=== PATIENT | male | born 1995 | race Caucasian/White ===

== ENCOUNTER 2017-06-28 09:15 | Observation (INO) | payer MEDICAID ==
[2017-06-28 09:19] VITALS: BMI 19.8
[2017-06-28] MEDS ORDERED: Lactated Ringer's 1,000 ML IV STA (10:04)
--- NOTE | 2017-06-28 10:10 | C.PDOC ---
History Of Present Illness Patient c/o subjective fever, epigastric pain, nausea, vomiting and diarrhea since last night. Patient reports several family members have similar symptoms, denies recent travelling or any other complaints at this time. Time Seen by Provider: 06/28/17 09:26 Chief Complaint (Nursing): Abdominal Pain History Per: Patient History/Exam Limitations: no limitations Onset/Duration Of Symptoms: Days Current Symptoms Are (Timing): Still Present Location Of Pain/Discomfort: Epigastric Past Medical History Reviewed: Historical Data, Nursing Documentation, Vital Signs Vital Signs: Last Vital Signs Temp 99.1 F 06/28/17 13:18 Pulse 116 H 06/28/17 13:18 Resp 16 06/28/17 13:18 BP 113/63 06/28/17 13:18 Pulse Ox 96 06/28/17 14:33 - Medical History PMH: No Chronic Diseases Surgical History: No Surg Hx Family History: States: No Known Family Hx - Social History Hx Alcohol Use: No Hx Substance Use: No - Immunization History Hx Tetanus Toxoid Vaccination: No Hx Influenza Vaccination: No Hx Pneumococcal Vaccination: No Review Of Systems Constitutional: Positive for: Fever Gastrointestinal: Positive for: Nausea, Vomiting, Abdominal Pain, Diarrhea Musculoskeletal: Negative for: Back Pain Skin: Negative for: Rash Physical Exam - Physical Exam Appears: Non-toxic, No Acute Distress Skin: Normal Color, Warm, Dry, No Rash Head: Atraumatic, Normacephalic Oral Mucosa: Moist Neck: Normal ROM, Supple Cardiovascular: Rhythm Regular, Other (Tachycardic) Respiratory: Normal Breath Sounds, No Rales, No Rhonchi, No Wheezing Gastrointestinal/Abdominal: Soft, Tenderness (Mild epigastric), No Guarding, No Rebound Back: No CVA Tenderness Neurological/Psych: Oriented x3 ED Course And Treatment - Laboratory Results Result Diagrams: 06/28/17 13:12 06/28/17 10:18 ECG: Interpreted By Me, Viewed By Me ECG Rhythm: Sinus Tachycardia Rate From EC (BPM ) O2 Sat by Pulse Oximetry: 96 (RA) Pulse Ox Interpretation: Normal Progress Note: Plan: labs, IV hydration. Labs were significant for leucocytosis with bendemia, patient still tachycardic after 1L of IVF. He was re -evaluated after the second liter of IVF, still tachycardic, bandemia increased. case was d/w who accepted patient to [facility] for observation. Disposition - Disposition Disposition: HOSPITALIZED Disposition Time: 13:59 Condition: FAIR - Clinical Impression Clinical Impression: Gastroenteritis, Tachycardia, Bandemia - PA / [employer] / Resident Statement MD/DO has reviewed & agrees with the documentation as recorded. - Scribe Statement The provider has reviewed the documentation as recorded by the Scribe Trinidad Sellers All medical record entries made by the Anniaibe were at my direction and personally dictated by me. I have reviewed the chart and agree that the record accurately reflects my personal performance of the history, physical exam, medical decision making, and the department course for this patient. I have also personally directed, reviewed, and agree with the discharge instructions and disposition. Decision To Admit - Pt Status Changed To: Hospital Disposition Of: Observation - . Bed Request Type: Regular Admitting Physician: Bertrand Almodovar Patient Diagnosis: Gastroenteritis, Tachycardia, Bandemia
[2017-06-28] MEDS ORDERED: Lactated Ringer's 1,000 ML ONE (10:18)
[2017-06-28 10:21] LABS: BASO % 0.1 % (0.0-2.0); EOS % 0.1 % (0.0-4.0); HEMOGLOBIN 16.8 g/dL (12.0-18.0); LYMPH # 0.3 K/uL (1.0-4.3); LYMPH % 2.7 % (20.0-40.0); MEAN CELL VOLUME 85.1 fL (80.0-94.0); MEAN CORPUSCULAR HEMOGLOBIN 29.4 pg (27.0-31.0); MEAN CORPUSCULAR HGB CONC 34.6 g/dL (33.0-37.0); MEAN PLATELET VOLUME 9.6 fL (7.2-11.7); MONO # 0.4 K/uL (0.0-0.8); MONO % 3.7 % (0.0-10.0); NEUT # 10.5 K/uL (1.8-7.0); NEUT % 93.4 % (50.0-75.0); PLATELET COUNT 185 K/uL (130-400); RBC 5.71 Mil/uL (4.40-5.90); RED CELL DISTRIBUTION WIDTH 13.2 % (11.5-14.5); WHITE BLOOD COUNT 11.2 K/uL (4.8-10.8)
[2017-06-28 10:43] LABS: ALBUMIN 4.8 g/dL (3.5-5.0); ALT/SGPT 31 U/L (21-72); AST/SGOT 27 U/L (17-59); BLOOD UREA NITROGEN 20 mg/dL (9-20); CALCIUM 9.2 mg/dl (8.6-10.4); GFR AFRICAN-AMERICAN > 60; GFR NON-AFRICAN AMERICAN > 60; LIPASE 49 U/L (23-300)
[2017-06-28 10:50] LABS: ALB/GLOB RATIO 1.2 (1.0-2.1)
[2017-06-28 10:53] LABS: URINE BILIRUBIN NEGATIVE (NEGATIVE); URINE BLOOD NEGATIVE (NEGATIVE); URINE CLARITY Clear (Clear); URINE COLOR Yellow (YELLOW); URINE GLUCOSE (UA) NORMAL (Normal); URINE LEUKOCYTE ESTERASE NEG Leu/uL (Negative); URINE NITRATE NEGATIVE (NEGATIVE); URINE PROTEIN NEGATIVE (NEGATIVE); URINE UROBILINOGEN NORMAL mg/dL (0.2-1.0)
[2017-06-28 11:18] LABS: BANDS 10 % (0-2); LYMPHOCYTE 7 % (20-40); MONOCYTE 1 % (0-10); NEUTROPHIL 82 % (50-75); TOTAL CELLS COUNTED 100
[2017-06-28 11:19] LABS: PLATELET ESTIMATE NORMAL (NORMAL)
[2017-06-28] MEDS ORDERED: Sodium Chloride 0.9% 1,000 ML IV STA (11:19)
[2017-06-28 13:16] LABS: BASO % 0.2 % (0.0-2.0); LYMPH # 0.4 K/uL (1.0-4.3); LYMPH % 4.9 % (20.0-40.0); MEAN CELL VOLUME 85.2 fL (80.0-94.0); MEAN CORPUSCULAR HEMOGLOBIN 29.3 pg (27.0-31.0); MEAN CORPUSCULAR HGB CONC 34.4 g/dL (33.0-37.0); MEAN PLATELET VOLUME 9.1 fL (7.2-11.7); MONO # 0.3 K/uL (0.0-0.8); NEUT # 8.4 K/uL (1.8-7.0); NEUT % 91.9 % (50.0-75.0); PLATELET COUNT 154 K/uL (130-400); RBC 4.81 Mil/uL (4.40-5.90); WHITE BLOOD COUNT 9.1 K/uL (4.8-10.8)
[2017-06-28 13:23] LABS: HEMOGLOBIN 14.1 g/dL (12.0-18.0)
[2017-06-28 13:53] LABS: BANDS 29 % (0-2); LYMPHOCYTE 3 % (20-40); MONOCYTE 1 % (0-10); NEUTROPHIL 67 % (50-75); PLATELET ESTIMATE NORMAL (NORMAL); TOTAL CELLS COUNTED 100
[2017-06-28] MEDS: Sodium Chloride 0.9% 1,000 ML IV SCH ×2 (17:03→23:57)
--- NOTE | 2017-06-28 23:52 | CP.PCM.HP ---
History of Present Illness - History of Present Illness History of Present Illness: Chief Complaint : Abdominal Pain associated with nuasea, vomitting, diarrhea persistant History Of Present Illness Patient is a young [place] male with no significant PMH c/o subjective fever , epigastric pain, nausea, vomiting and diarrhea since last night. Patient reports several family members have similar symptoms, denies recent travelling or any other complaints at this time. Present on Admission - Present on Admission Any Indicators Present on Admission: Yes Review of Systems - Review of Systems Systems not reviewed;Unavailable: Acuity of Condition - Constitutional Constitutional: Fatigue, Lethargy, Malaise, Weakness - Cardiovascular Cardiovascular: absent: As Per HPI, Acrocyanosis, Chest Pain, Chest Pain at Rest , Chest Pain with Activity, Claudication, Diaphoresis, Dyspnea, Dyspnea on Exertion, Edema, Irregular Heart Rhythm, Pain Radiating to Arm/Neck/Jaw, Leg Edema, Leg Ulcers, Lightheadedness, Orthopnea, Palpitations, Paroxysmal Nocturnal Dyspnea, Pedal Edema, Radiating Pain, Rapid Heart Rate, Slow Heart Rate, Syncope, Other - Respiratory Respiratory: absent: As Per HPI, Cough, Dyspnea, Hemoptysis, Dyspnea on Exertion , Wheezing, Snoring, Stridor, Pain on Inspiration, Chest Congestion, Excessive Mucous Production, Change in Mucous Color, Pain with Coughing, Other - Gastrointestinal Gastrointestinal: Abdominal Pain, Loose Stools, Nausea, Vomiting - Genitourinary Genitourinary: absent: As Per HPI, Change in Urinary Stream, Difficulty Urinating, Dysuria, Flank Pain, Hematuria, Pyuria, Nocturia, Urinary Incontinence, Urinary Frequency, Urinary Hesitance, Urinary Urgency, Voiding Freq/Small Amts, Freq UTI, Hx Renal/Bladder Calculi, Hx /Renal Surgery, Bladder Distension, Other - Musculoskeletal Musculoskeletal: absent: As Per HPI, Abnormal Gait, Arthralgias, Atrophy, Back Pain, Deformity, Joint Swelling, Limited Range of Motion, Loss of Height, Muscle Cramps, Muscle Weakness, Myalgias, Neck Pain, Numbness, Radiating Pain into Limb, Stiffness, Tingling, Other Past Patient History - Past Social History Smoking Status: Never Smoked - PSYCHIATRIC Hx Substance Use: No - SURGICAL HISTORY Hx Surgeries: No - ANESTHESIA Hx Anesthesia: No Meds Allergies/Adverse Reactions: Allergies Allergy/AdvReac Type Severity Reaction Status Date / Time No Known Allergies Allergy Verified 06/28/17 09:17 Physical Exam - Constitutional Appears: No Acute Distress - Head Exam Head Exam: ATRAUMATIC, NORMAL INSPECTION, NORMOCEPHALIC - Eye Exam Eye Exam: EOMI, Normal appearance, PERRL Pupil Exam: NORMAL ACCOMODATION, PERRL - Neck Exam Neck exam: Positive for: Normal Inspection - Respiratory Exam Respiratory Exam: Clear to Auscultation Bilateral, NORMAL BREATHING PATTERN - Cardiovascular Exam Cardiovascular Exam: REGULAR RHYTHM - GI/Abdominal Exam GI & Abdominal Exam: Normal Bowel Sounds, Soft - Rectal Exam Rectal Exam: Deferred Results - Vital Signs Recent Vital Signs: Last Vital Signs Temp 99.5 F 06/28/17 23:23 Pulse 104 H 06/28/17 23:23 Resp 19 06/28/17 23:23 BP 100/60 06/28/17 23:23 Pulse Ox 96 06/28/17 23:23 - Labs Result Diagrams: 06/28/17 13:12 06/28/17 10:18 Labs: Laboratory Results - last 24 hr 06/28/17 06/28/17 06/28/17 10:18 10:18 10:42 WBC 11.2 H RBC 5.71 Hgb 16.8 Hct 48.6 MCV 85.1 MCH 29.4 MCHC 34.6 RDW 13.2 Plt Count 185 MPV 9.6 Neut % (Auto) 93.4 H Lymph % (Auto) 2.7 L [place] % (Auto) 3.7 Eos % (Auto) 0.1 Baso % (Auto) 0.1 Neut # 10.5 H Lymph # 0.3 L [place] # 0.4 Eos # 0.0 Baso # 0.0 Neutrophils % (Manual) 82 H Band Neutrophils % 10 H Lymphocytes % (Manual) 7 L Monocytes % (Manual) 1 Platelet Estimate Normal RBC Morphology Normal Sodium 138 Potassium 3.7 Chloride 98 Carbon Dioxide 26 Anion Gap 18 BUN 20 Creatinine 0.9 Est GFR ( Amer) > 60 Est GFR (Non-Af Amer) > 60 Random Glucose 152 H Calcium 9.2 Total Bilirubin 1.6 H AST 27 ALT 31 Alkaline Phosphatase 91 Total Protein 8.8 H Albumin 4.8 Globulin 4.0 H Albumin/Globulin Ratio 1.2 Lipase 49 Urine Color Yellow Urine Clarity Clear Urine pH 7.0 Ur Specific [place] 1.025 Urine Protein Negative Urine Glucose (UA) Normal Urine Ketones 1+ H Urine Blood Negative Urine Nitrate Negative Urine Bilirubin Negative Urine Urobilinogen Normal Ur Leukocyte Esterase Neg Urine WBC (Auto) 1 Urine RBC (Auto) 1 06/28/17 13:12 WBC 9.1 RBC 4.81 Hgb 14.1 D Hct 41.0 MCV 85.2 MCH 29.3 MCHC 34.4 RDW 13.0 Plt Count 154 MPV 9.1 Neut % (Auto) 91.9 H Lymph % (Auto) 4.9 L [place] % (Auto) 3.0 Eos % (Auto) 0.0 Baso % (Auto) 0.2 Neut # 8.4 H Lymph # 0.4 L [place] # 0.3 Eos # 0.0 Baso # 0.0 Neutrophils % (Manual) 67 Band Neutrophils % 29 H* Lymphocytes % (Manual) 3 L Monocytes % (Manual) 1 Platelet Estimate Normal RBC Morphology Normal Sodium Potassium Chloride Carbon Dioxide Anion Gap BUN Creatinine Est GFR ( Amer) Est GFR (Non-Af Amer) Random Glucose Calcium Total Bilirubin AST ALT Alkaline Phosphatase Total Protein Albumin Globulin Albumin/Globulin Ratio Lipase Urine Color Urine Clarity Urine pH Ur Specific [place] Urine Protein Urine Glucose (UA) Urine Ketones Urine Blood Urine Nitrate Urine Bilirubin Urine Urobilinogen Ur Leukocyte Esterase Urine WBC (Auto) Urine RBC (Auto) Assessment & Plan (1) Gastroenteritis Status: Acute
[2017-06-29] MEDS: Sodium Chloride 0.9% 1,000 ML IV SCH ×3 (07:30→20:20)
[2017-06-29 07:45] LABS: HEMOGLOBIN 13.5 g/dL (12.0-18.0); MEAN CELL VOLUME 85.4 fL (80.0-94.0); MEAN CORPUSCULAR HEMOGLOBIN 29.2 pg (27.0-31.0); MEAN CORPUSCULAR HGB CONC 34.2 g/dL (33.0-37.0); MEAN PLATELET VOLUME 9.2 fL (7.2-11.7); RBC 4.6 Mil/uL (4.40-5.90); RED CELL DISTRIBUTION WIDTH 13.3 % (11.5-14.5); WHITE BLOOD COUNT 6.6 K/uL (4.8-10.8)
[2017-06-29 08:30] LABS: ALB/GLOB RATIO 1.2 (1.0-2.1); ALBUMIN 3.1 g/dL (3.5-5.0); ALT/SGPT 28 U/L (21-72); AST/SGOT 27 U/L (17-59); BLOOD UREA NITROGEN 11 mg/dL (9-20); CALCIUM 7.4 mg/dl (8.6-10.4); GFR AFRICAN-AMERICAN > 60; GFR NON-AFRICAN AMERICAN > 60
[2017-06-29] MEDS ORDERED: Potassium Chloride 20 mEq ER Tab PO ONE (08:54)
--- NOTE | 2017-06-29 12:00 | CP.PCM.PN ---
Subjective - Date & Time of Evaluation Date of Evaluation: 06/29/17 Time of Evaluation: 12:00 - Subjective Subjective: PT SEEN AND EXAMINED. STILL C/O NAUSEA. NO VOMITING AT THIS TIME NOR ABD PAIN. DISCUSSED WITH DR. BEGUM. CONSULT WITH DR. STUART (NOTIFIED BY ME AND HE WILL SEE PT TOMORROW). IV ABX ORDERED. REPEAT LABS ORDERED. STOOL AND CULTURES. CT ABD/PEL ORDERED. DIET ADVANCED TO FULL LIQUID FOR NOW. WILL F/U TOMORROW WITH ALL RESULTS. DISCUSSED WITH PT AND FATHER AND IN AGREEMENT WITH PLAN. NO FURTHER ORDERS. Objective - Vital Signs/Intake and Output Vital Signs (last 24 hours): Temp Pulse Resp BP Pulse Ox 97.8 F 90 20 91/84 L 97 06/29/17 08:13 06/29/17 08:13 06/29/17 08:13 06/29/17 08:13 06/29/17 08:13 Intake and Output: 06/29/17 06/29/17 06:59 18:59 Intake Total 2500 Balance 2500 - Medications Medications: Current Medications Acetaminophen (Tylenol 325mg Tab) 650 mg PO Q6 PRN PRN Reason: Pain, Mild (1-3) Last Admin: 06/29/17 00:00 Dose: 650 mg Famotidine (Pepcid) 20 mg IVP Q12 [facility] Last Admin: 06/29/17 09:43 Dose: 20 mg Sodium Chloride (Sodium Chloride 0.9%) 1,000 mls @ 150 mls/hr IV .Q6H40M [facility]ANCY Last Admin: 06/29/17 07:30 Dose: 150 mls/hr Ciprofloxacin (Cipro 400mg/200ml Dsw) 400 mg in 200 mls @ 133 mls/hr IVPB Q12H [facility] Metronidazole (Flagyl) 500 mg in 100 mls @ 100 mls/hr IVPB Q8 [facility] Ondansetron HCl (Zofran Inj) 4 mg IVP Q4 PRN PRN Reason: Nausea/Vomiting Pantoprazole Sodium (Protonix Inj) 40 mg IVP DAILY [facility] Pneumococcal Polyvalent Vaccine (Pneumovax 23 Vaccine) 0.5 ml IM .ONCE ONE Stop: 07/01/17 10:01 - Labs Labs: 06/29/17 07:39 06/29/17 07:39
[2017-06-29] MEDS: Ciprofloxacin 400mg/200ml D5W 400 MG/200 ML BAG IVPB SCH ×2 (12:46→23:53)
[2017-06-29] MEDS ORDERED: Iohexol 240 (50 ml) PO ONE (13:30)
[2017-06-29] MEDS: metroNIDAZOLE IV 500 mg/100 ml 500 MG/100 ML BAG IVPB SCH ×2 (14:07→21:29)
[2017-06-29 14:10] LABS: BASO % 0.3 % (0.0-2.0); EOS % 0.7 % (0.0-4.0); LYMPH # 1.7 K/uL (1.0-4.3); LYMPH % 25.6 % (20.0-40.0); MONO # 0.6 K/uL (0.0-0.8); MONO % 8.8 % (0.0-10.0); NEUT # 4.2 K/uL (1.8-7.0); NEUT % 64.6 % (50.0-75.0); NRBC % 0.2 % (0.0-2.0)
--- NOTE | 2017-06-29 14:49 | CARD ---
APPROVED REPORT EKG Measurement Heart [id number] <Conclusion> Sinus tachycardia Baseline Artifact.
--- NOTE | 2017-06-29 17:28 | CT ---
PROCEDURE: CT Abdomen and Pelvis without IV contrast. HISTORY: gen abd pain, n/v, bandemia COMPARISON: None available. TECHNIQUE: Contiguous axial images of the abdomen and pelvis. Oral contrast was administered. No IV contrast given. Coronal and Sagittal reformats generated and reviewed. Radiation dose: Total exam DLP = 267.96 mGy-cm. This CT exam was performed using one or more of the following dose reduction techniques: Automated exposure control, adjustment of the mA and/or kV according to patient size, and/or use of iterative reconstruction technique. FINDINGS: There is limited evaluation of the solid organs without the administration of IV contrast. Examination limited by paucity of intra-abdominal and intrapelvic fat. LOWER THORAX: No visible consolidation, pleural effusion, or pneumothorax. LIVER: Unremarkable unenhanced appearance. GALLBLADDER AND BILE DUCTS: Unremarkable unenhanced appearance. PANCREAS: Unremarkable unenhanced appearance. SPLEEN: Unremarkable unenhanced appearance. ADRENALS: Unremarkable unenhanced appearance. KIDNEYS AND URETERS: No hydronephrosis or obstructing renal calculus. BLADDER: The urinary bladder appears unremarkable. REPRODUCTIVE: Unremarkable. APPENDIX: The appendix is not identified. No secondary signs of acute appendicitis. BOWEL: The stomach is nondistended. The bowel loops appear within normal limits of caliber without evidence of intestinal obstruction. PERITONEUM: No significant free fluid. No definite free air. LYMPH NODES: Sub cm mesenteric lymph nodes, nonspecific. No bulky lymphadenopathy identified. VASCULATURE: No aortic aneurysm. BONES: No acute osseous abnormality is detected. OTHER FINDINGS: None. IMPRESSION: The appendix is not identified. No secondary signs of acute appendicitis appreciated. Correlate clinically. Sub cm mesenteric lymph nodes, nonspecific.
--- NOTE | 2017-06-29 23:02 | CP.PCM.PN ---
Subjective - Date & Time of Evaluation Date of Evaluation: 06/29/17 Time of Evaluation: 19:00 - Subjective Subjective: Pt is on antibiotics for gastroenteritis, he still c/o nausea, vomiting and diarrhea, pt is on medical management and monitoring Objective - Vital Signs/Intake and Output Vital Signs (last 24 hours): Temp Pulse Resp BP Pulse Ox 97.8 F 83 20 105/69 100 06/29/17 18:57 06/29/17 18:57 06/29/17 18:57 06/29/17 18:57 06/29/17 22:50 Intake and Output: 06/29/17 06/30/17 18:59 06:59 Intake Total 2435 1800 Balance 2435 1800 - Medications Medications: Current Medications Acetaminophen (Tylenol 325mg Tab) 650 mg PO Q6 PRN PRN Reason: Pain, Mild (1-3) Last Admin: 06/29/17 14:08 Dose: 650 mg Famotidine (Pepcid) 20 mg IVP Q12 [facility] Last Admin: 06/29/17 21:28 Dose: 20 mg Sodium Chloride (Sodium Chloride 0.9%) 1,000 mls @ 150 mls/hr IV .Q6H40M [facility] Last Admin: 06/29/17 20:20 Dose: 150 mls/hr Ciprofloxacin (Cipro 400mg/200ml Dsw) 400 mg in 200 mls @ 133 mls/hr IVPB Q12H [facility] Last Admin: 06/29/17 12:46 Dose: 133 mls/hr Metronidazole (Flagyl) 500 mg in 100 mls @ 100 mls/hr IVPB Q8 [facility] Last Admin: 06/29/17 21:29 Dose: 100 mls/hr Ondansetron HCl (Zofran Inj) 4 mg IVP Q4 PRN PRN Reason: Nausea/Vomiting Last Admin: 06/29/17 14:28 Dose: 4 mg Pantoprazole Sodium (Protonix Inj) 40 mg IVP DAILY [facility] Last Admin: 06/29/17 12:42 Dose: 40 mg Pneumococcal Polyvalent Vaccine (Pneumovax 23 Vaccine) 0.5 ml IM .ONCE ONE Stop: 07/01/17 10:01 - Labs Labs: 06/29/17 07:39 06/29/17 07:39 - Constitutional Appears: No Acute Distress - Head Exam Head Exam: ATRAUMATIC, NORMAL INSPECTION, NORMOCEPHALIC - Eye Exam Eye Exam: EOMI, Normal appearance, PERRL Pupil Exam: NORMAL ACCOMODATION, PERRL - Respiratory Exam Respiratory Exam: Clear to Ausculation Bilateral, NORMAL BREATHING PATTERN - Cardiovascular Exam Cardiovascular Exam: REGULAR RHYTHM, +S1, +S2. absent: Murmur - GI/Abdominal Exam GI & Abdominal Exam: Soft, Normal Bowel Sounds. absent: Tenderness Assessment and Plan (1) Gastroenteritis Assessment & Plan: on antibiotics Monitor pt rule out enterocolitis stool culture analysis Status: Acute
[2017-06-30] MEDS: Sodium Chloride 0.9% 1,000 ML IV SCH ×4 (04:33→15:40)
[2017-06-30] MEDS: metroNIDAZOLE IV 500 mg/100 ml 500 MG/100 ML BAG IVPB SCH ×2 (05:05→13:55)
[2017-06-30 07:30] LABS: BASO % 0.3 % (0.0-2.0); EOS # 0.2 K/uL (0.0-0.7); EOS % 4.1 % (0.0-4.0); HEMOGLOBIN 12.9 g/dL (12.0-18.0); LYMPH % 38.2 % (20.0-40.0); MEAN CELL VOLUME 84.3 fL (80.0-94.0); MEAN CORPUSCULAR HGB CONC 35.6 g/dL (33.0-37.0); MEAN PLATELET VOLUME 9.2 fL (7.2-11.7); MONO # 0.5 K/uL (0.0-0.8); MONO % 8.8 % (0.0-10.0); NEUT # 2.6 K/uL (1.8-7.0); NEUT % 48.6 % (50.0-75.0); RBC 4.29 Mil/uL (4.40-5.90); RED CELL DISTRIBUTION WIDTH 13.4 % (11.5-14.5); WHITE BLOOD COUNT 5.3 K/uL (4.8-10.8)
[2017-06-30 07:53] LABS: PLATELET COUNT 128 K/uL (130-400)
[2017-06-30 08:37] LABS: ALB/GLOB RATIO 1.1 (1.0-2.1); ALT/SGPT 25 U/L (21-72); AST/SGOT 18 U/L (17-59); BLOOD UREA NITROGEN 5 mg/dL (9-20); CALCIUM 7.9 mg/dl (8.6-10.4); GFR AFRICAN-AMERICAN > 60; GFR NON-AFRICAN AMERICAN > 60
[2017-06-30 11:23] LABS: BANDS 3 % (0-2); EOSINOPHIL 3 % (0-4); LYMPHOCYTE 26 % (20-40); MONOCYTE 12 % (0-10); NEUTROPHIL 56 % (50-75); TOTAL CELLS COUNTED 100
[2017-06-30 11:24] LABS: PLATELET ESTIMATE SLIGHTLY DECREASED (NORMAL)
[2017-06-30] MEDS: Ciprofloxacin 400mg/200ml D5W 400 MG/200 ML BAG IVPB SCH (11:51)
[2017-06-30] MEDS ORDERED: Potassium Chloride 20 mEq ER Tab PO ONE (13:15)
[2017-06-30 16:43] VITALS: BP 114/57; PULSE 68; RESP 20; TEMP 98.2; O2SAT 97
--- NOTE | 2017-06-30 17:05 | CP.PCM.PN ---
Subjective - Date & Time of Evaluation Date of Evaluation: 06/30/17 Time of Evaluation: 17:02 - Subjective Subjective: PATIENT WAS ADMITTED FOR GASTROENTERITIS, TACHYCARDIA AND BANDEMIA; PATIENT DENIES NAUSEA , VOMITING CHEST PAIN OR SOB; NO SIGN OF DISTRESS NOTED Objective - Vital Signs/Intake and Output Vital Signs (last 24 hours): Temp Pulse Resp BP Pulse Ox 98.2 F 68 20 114/57 L 97 06/30/17 15:00 06/30/17 15:00 06/30/17 15:00 06/30/17 15:00 06/30/17 15:00 Intake and Output: 06/30/17 06/30/17 06:59 18:59 Intake Total 3575 550 Output Total 400 Balance 3575 150 - Medications Medications: Current Medications Acetaminophen (Tylenol 325mg Tab) 650 mg PO Q6 PRN PRN Reason: Pain, Mild (1-3) Last Admin: 06/29/17 14:08 Dose: 650 mg Famotidine (Pepcid) 20 mg IVP Q12 [facility] Last Admin: 06/30/17 09:43 Dose: 20 mg Sodium Chloride (Sodium Chloride 0.9%) 1,000 mls @ 150 mls/hr IV .Q6H40M [facility] Last Admin: 06/30/17 09:49 Dose: 150 mls/hr Ciprofloxacin (Cipro 400mg/200ml Dsw) 400 mg in 200 mls @ 133 mls/hr IVPB Q12H [facility] Last Admin: 06/30/17 11:51 Dose: 133 mls/hr Metronidazole (Flagyl) 500 mg in 100 mls @ 100 mls/hr IVPB Q8 [facility] Last Admin: 06/30/17 13:55 Dose: 100 mls/hr Ondansetron HCl (Zofran Inj) 4 mg IVP Q4 PRN PRN Reason: Nausea/Vomiting Last Admin: 06/29/17 14:28 Dose: 4 mg Pantoprazole Sodium (Protonix Inj) 40 mg IVP DAILY [facility] Last Admin: 06/30/17 09:43 Dose: 40 mg Pneumococcal Polyvalent Vaccine (Pneumovax 23 Vaccine) 0.5 ml IM .ONCE ONE Stop: 07/01/17 10:01 - Labs Labs: 06/30/17 07:15 06/30/17 07:15 - Constitutional Appears: Well - Neck Exam Neck Exam: Full ROM - Respiratory Exam Respiratory Exam: Clear to Ausculation Bilateral, NORMAL BREATHING PATTERN - Cardiovascular Exam Cardiovascular Exam: +S1, +S2 - Extremities Exam Extremities Exam: Normal Capillary Refill Assessment and Plan - Assessment and Plan (Free Text) Assessment: A/P PATIENT WAS SEEN AND EXAMINED BY LABORATORY AIDE; ABD CT REVIEW SHOW NO SIGN OF APPENDICITIS NOTED LAST LABS REVIEW BAND IS 3 AND WBC IS NORMAL IS LIMIT POTASSIUM WAS LOW BUT REPLACE BY LABORATORY AIDE WHO COVER THE FLOOR BLOOD CULT AND STOOL CULTURE WERE NEG DISCUSS WITH DR BEGUM WHO CLEAR PATIENT FOR DC NEW PRESCRIPTIONS INCLUDE: CIPRO (ANTIBIOTIC) BY MOUTH EVERY 12 HOURS (MORNING AND EVENING) FOR 10 DAYS; FLAGYL (ANTIBIOTIC) BY MOUTH EVERY 8 HOURS FOR 10 DAYS ; ZOFRAN 4 MG (1 TABLET UNDER THE TONGUE) EVERY 6 HOURS IF YOU HAVE ANY NAUSEA OR VOMITING; FLORASTOR (PROBIOTIC) 1 CAPSULE BY MOUTH EVERY 12 HOURS (MORNING AND EVENING) TO HELP PROTECT YOUR STOMACH. FEEL FREE TO FOLLOW UP WITH DR. STUART (STOMACH DOCTOR) IN THE OFFICE IF YOUR SYMPTOMS CONTINUE OR RESUME. FOLLOW UP WITH DR. BEGUM IN THE OFFICE IN 1 WEEK (BY NEXT MONDAY)---CALL OFFICE ON MONDAY TO MAKE AN APPOINTMENT. FOR ANY OTHER CONCERNS OR QUESTIONS, CONTACT DR. BEGUM'S OFFICE. DISCUSS WITH PATIENT WHO AGREE AND VERBALIZE UNDERSTANDING
[2017-06-30] MEDS ORDERED: Pneumococcal 23-Valent Vaccine IM ONE (17:45)
[2017-06-30] MEDS ORDERED: Influenza Vaccine 60 mcg/0.5 mL SYR (4YR UP) IM ONE (17:45)
--- NOTE | 2017-06-30 23:07 | CP.PCM.DIS ---
Provider - Provider Date of Admission: 06/28/17 13:58 Attending physician: Bertrand Almodovar MD Time Spent in preparation of Discharge (in minutes): 34 Diagnosis - Discharge Diagnosis (1) Gastroenteritis Status: Acute Hospital Course - Lab Results Lab Results: Micro Results 06/29/17 Unknown Stool Ova and Parasite Concentrate Exam - Final 06/29/17 13:33 Blood-Venous Blood Culture - Preliminary NO GROWTH AFTER 24 HOURS 06/29/17 13:05 Blood-Venous Blood Culture - Preliminary NO GROWTH AFTER 24 HOURS Most Recent Lab Values WBC 5.3 K/uL (4.8-10.8) 06/30/17 07:15 RBC 4.29 Mil/uL (4.40-5.90) L 06/30/17 07:15 Hgb 12.9 g/dL (12.0-18.0) 06/30/17 07:15 Hct 36.2 % (35.0-51.0) 06/30/17 07:15 MCV 84.3 fL (80.0-94.0) 06/30/17 07:15 MCH 30.0 pg (27.0-31.0) 06/30/17 07:15 MCHC 35.6 g/dL (33.0-37.0) 06/30/17 07:15 RDW 13.4 % (11.5-14.5) 06/30/17 07:15 Plt Count 128 K/uL (130-400) L 06/30/17 07:15 MPV 9.2 fL (7.2-11.7) 06/30/17 07:15 Neut % (Auto) 48.6 % (50.0-75.0) L 06/30/17 07:15 Lymph % (Auto) 38.2 % (20.0-40.0) 06/30/17 07:15 [place] % (Auto) 8.8 % (0.0-10.0) 06/30/17 07:15 Eos % (Auto) 4.1 % (0.0-4.0) H 06/30/17 07:15 Baso % (Auto) 0.3 % (0.0-2.0) 06/30/17 07:15 Neut # 2.6 K/uL (1.8-7.0) 06/30/17 07:15 Lymph # 2.0 K/uL (1.0-4.3) 06/30/17 07:15 [place] # 0.5 K/uL (0.0-0.8) 06/30/17 07:15 Eos # 0.2 K/uL (0.0-0.7) 06/30/17 07:15 Baso # 0.0 K/uL (0.0-0.2) 06/30/17 07:15 Neutrophils % (Manual) 56 % (50-75) 06/30/17 07:15 Band Neutrophils % 3 % (0-2) H 06/30/17 07:15 Lymphocytes % (Manual) 26 % (20-40) 06/30/17 07:15 Monocytes % (Manual) 12 % (0-10) H 06/30/17 07:15 Eosinophils % (Manual) 3 % (0-4) 06/30/17 07:15 Platelet Estimate Slightly decreased (NORMAL) L 06/30/17 07:15 RBC Morphology Normal 06/30/17 07:15 Sodium 133 mmol/L (132-148) 06/30/17 07:15 Potassium 3.5 mmol/L (3.6-5.2) L 06/30/17 07:15 Chloride 104 mmol/L (98-107) 06/30/17 07:15 Carbon Dioxide 25 mmol/L (22-30) 06/30/17 07:15 Anion Gap 8 (10-20) L 06/30/17 07:15 BUN 5 mg/dL (9-20) L 06/30/17 07:15 Creatinine 0.8 mg/dL (0.8-1.5) 06/30/17 07:15 Est GFR ( Amer) > 60 06/30/17 07:15 Est GFR (Non-Af Amer) > 60 06/30/17 07:15 Random Glucose 88 mg/dL (75-110) 06/30/17 07:15 Calcium 7.9 mg/dl (8.6-10.4) L 06/30/17 07:15 Total Bilirubin 0.6 mg/dL (0.2-1.3) 06/30/17 07:15 AST 18 U/L (17-59) 06/30/17 07:15 ALT 25 U/L (21-72) 06/30/17 07:15 Alkaline Phosphatase 45 U/L (38-126) 06/30/17 07:15 Total Protein 5.7 g/dL (6.3-8.3) L 06/30/17 07:15 Albumin 3.0 g/dL (3.5-5.0) L 06/30/17 07:15 Globulin 2.7 gm/dL (2.2-3.9) 06/30/17 07:15 Albumin/Globulin Ratio 1.1 (1.0-2.1) 06/30/17 07:15 Lipase 49 U/L (23-300) 06/28/17 10:18 Urine Color Yellow (YELLOW) 06/28/17 10:42 Urine Clarity Clear (Clear) 06/28/17 10:42 Urine pH 7.0 (5.0-8.0) 06/28/17 10:42 Ur Specific [place] 1.025 (1.003-1.030) 06/28/17 10:42 Urine Protein Negative mg/dL (NEGATIVE) 06/28/17 10:42 Urine Glucose (UA) Normal mg/dL (Normal) 06/28/17 10:42 Urine Ketones 1+ mg/dL (NEGATIVE) H 06/28/17 10:42 Urine Blood Negative (NEGATIVE) 06/28/17 10:42 Urine Nitrate Negative (NEGATIVE) 06/28/17 10:42 Urine Bilirubin Negative (NEGATIVE) 06/28/17 10:42 Urine Urobilinogen Normal mg/dL (0.2-1.0) 06/28/17 10:42 Ur Leukocyte Esterase Neg [place]/uL (Negative) 06/28/17 10:42 Urine WBC (Auto) 1 /hpf (0-5) 06/28/17 10:42 Urine RBC (Auto) 1 /hpf (0-3) 06/28/17 10:42 Stool Leukocytes, Qual Negative (NEGATIVE) 06/29/17 Unknown - Hospital Course Hospital Course: A/P PATIENT WAS SEEN AND EXAMINED BY ME; ABD CT REVIEW SHOW NO SIGN OF APPENDICITIS NOTED LAST LABS REVIEW BAND IS 3 AND WBC IS NORMAL IS LIMIT POTASSIUM WAS LOW BUT REPLACE BY RETAIL SERVICE TECHNICIAN WHO COVER THE FLOOR BLOOD CULT AND STOOL CULTURE WERE NEG CLEAR PATIENT FOR DC NEW PRESCRIPTIONS INCLUDE: CIPRO (ANTIBIOTIC) BY MOUTH EVERY 12 HOURS (MORNING AND EVENING) FOR 10 DAYS; FLAGYL (ANTIBIOTIC) BY MOUTH EVERY 8 HOURS FOR 10 DAYS ; ZOFRAN 4 MG (1 TABLET UNDER THE TONGUE) EVERY 6 HOURS IF YOU HAVE ANY NAUSEA OR VOMITING; FLORASTOR (PROBIOTIC) 1 CAPSULE BY MOUTH EVERY 12 HOURS (MORNING AND EVENING) TO HELP PROTECT YOUR STOMACH. FEEL FREE TO FOLLOW UP WITH DR. HOYT (STOMACH DOCTOR) IN THE OFFICE IF YOUR SYMPTOMS CONTINUE OR RESUME. FOLLOW UP WITH DR. ALMODOVAR IN THE OFFICE IN 1 WEEK (BY Monday)---CALL OFFICE ON MONDAY TO MAKE AN APPOINTMENT. FOR ANY OTHER CONCERNS OR QUESTIONS, CONTACT MY OFFICE. DISCUSS WITH PATIENT WHO AGREE AND VERBALIZE UNDERSTANDING Discharge Exam - Head Exam Head Exam: ATRAUMATIC, NORMAL INSPECTION, NORMOCEPHALIC Discharge Plan - Discharge Medications Prescriptions: Ciprofloxacin [Cipro] 500 mg PO Q12 #20 tab metroNIDAZOLE [Flagyl] 500 mg PO Q8 #30 tab Saccharomyces Boulardi [Florastor] 250 mg PO Q12 #20 cap Ondansetron ODT [Zofran ODT] 4 mg PO Q6 PRN #30 odt PRN Reason: Nausea/Vomiting - Follow Up Plan Condition: FAIR Disposition: HOME/ ROUTINE Instructions: Ciprofloxacin (By mouth), Metronidazole (By mouth), Ondansetron ( By mouth), Probiotic (By mouth), Supraventricular Tachycardia (DC), Gastroenteritis (DC), Atrial Tachycardia (DC) Additional Instructions: NEW PRESCRIPTIONS INCLUDE: CIPRO (ANTIBIOTIC) BY MOUTH EVERY 12 HOURS (MORNING AND EVENING) FOR 10 DAYS; FLAGYL (ANTIBIOTIC) BY MOUTH EVERY 8 HOURS FOR 10 DAYS ; ZOFRAN 4 MG (1 TABLET UNDER THE TONGUE) EVERY 6 HOURS IF YOU HAVE ANY NAUSEA OR VOMITING; FLORASTOR (PROBIOTIC) 1 CAPSULE BY MOUTH EVERY 12 HOURS (MORNING AND EVENING) TO HELP PROTECT YOUR STOMACH. FEEL FREE TO FOLLOW UP WITH DR. HOYT (STOMACH DOCTOR) IN THE OFFICE IF YOUR SYMPTOMS CONTINUE OR RESUME. FOLLOW UP WITH DR. ALMODOVAR IN THE OFFICE IN 1 WEEK (BY Monday)---CALL OFFICE ON MONDAY TO MAKE AN APPOINTMENT. FOR ANY OTHER CONCERNS OR QUESTIONS, CONTACT DR. ALMODOVAR'S OFFICE. Referrals: Jose Hoyt [Staff Provider] - Bertrnad Almodovar MD [Staff Provider] -
--- NOTE | 2017-07-01 05:46 | CON ---
DATE: 06/30/[address] Vasquez [address] Dr[address] Bertrand Almodovar. I was called for a GI consultation by the admitting MD as well as the medical staff in the floor. The patient is seen and fully examined on 06/30/2017. The entire chart is reviewed, including but not limited to the most recent lab and radiology study results, current and the previous medication lists, current and the previous medical events, and allergy to medication list as well as all the available current and the previous medical records. Case discussed with the staff at length. HISTORY OF PRESENT ILLNESS: This is a 21-year-old male, who was admitted to hospital through the emergency room with a main complaint of severe mid-epigastric pain, nausea and vomiting, associated with periods of diarrhea for the last several hours prior to this admission with low-grade fever on and off, without any reported active bleeding, but loss of appetite. The patient's family members had the same symptoms - all at the same time. PAST MEDICAL HISTORY: Not significant. FAMILY HISTORY: Unrelated to specific GI disorder. SOCIAL HISTORY: Denies any cigarette smoking or alcohol intake. ALLERGIES TO MEDICATIONS: NONE. CURRENT MEDICATIONS: Medication list, post-admission was reviewed. LABORATORY DATA: Initial blood workup post-admission showed normal CBC, but elevated blood glucose level to 152. PHYSICAL EXAMINATION: GENERAL: A 21-year-old male, who appears to be awake, alert, and oriented, complaining of much less abdominal pain at the time he was seen by me. VITAL SIGNS: Afebrile with pulse of 98, respiratory rate 18-20, with blood pressure 106/60. HEENT: Showed pale, dry oral mucous membrane. Nonicteric sclerae. LYMPH NODES: No lymphadenitis or lymphadenopathy. LUNGS: Few scattered mild crepitation. Breathing sounds are present bilaterally. HEART: Positive S1 and S2 with increased rate. ABDOMEN: Soft with slight generalized tenderness. No mass or organomegaly. No rebound tenderness or guarding. RECTAL: The patient refused. EXTREMITIES: Without edema, clubbing, or cyanosis. NEUROLOGIC: No reported new neurological deficits, sensory or motor. IMPRESSION: 1. Acute gastroenteritis, bacterial blood cells, viral in nature. 2. Diarrhea, most likely secondary to above. SUGGESTIONS: 1. I agree with your plan. 2. Re-hydration. 3. Proton pump inhibitors. 4. Follow stool workup. 5. If there is no significant further improvement, then sectional abdominal and pelvic CAT scans to be kept in mind. 6. Reglan IV. 7. Proton pump inhibitors. 8. Flagyl IV. 9. Further recommendations to follow. 10. Blood culture x2 to be kept in mind. Thank you for letting me participate in your patient's case management. Jose Vasquez MD
== END 2017-06-30 18:45 | disposition home or self-care (01) ==
LOC: C.ER 09:15 → C.9E 13:58 → C.3T 14:56
PROVIDERS: ADMIT Internal Medicine; ATTEND Internal Medicine
DX: K52.9 Noninfective gastroenteritis and colitis, unspecified (principal); A08.4 Viral intestinal infection, unspecified
CPT/HCPCS: 36415; 74176; 80053; 81001; 83690; 85004; 85025; 85027; 87040; 87045; 87086; 87177; 87209; 89055; 90471; 90674; 90732; 93005; 96360; 96374; 99285; C9113; G0378; J0744; J2405; J7040; J7120; Q9966